=== PATIENT | female | born 1985 | race African-American/Black ===

== ENCOUNTER 2020-06-09 08:22 | Emergency (ER) | payer MEDICAID ==
[~2020-06-09] VITALS: Ht 165.1 cm; Wt 100.0 kg
[2020-06-09 08:32] VITALS: BP 162/107
== END 2020-06-09 10:28 | disposition home or self-care (01) ==
LOC: ER 08:22
DX: R10.9 Unspecified abdominal pain (principal); I10 Essential (primary) hypertension; Z90.49 Acquired absence of other specified parts of digestive tract
CPT/HCPCS: 99281; Z7610